=== PATIENT | female | born 1985 ===

== ENCOUNTER 2020-02-17 14:00 | Inpatient (IN) | payer OTHER ==
[~2020-02-17] VITALS: Ht 152.4 cm; Wt 67.1 kg
[2020-02-29] MEDS ORDERED: PRENATAL TABLE1 EAC1 PO (22:13)
== END 2020-03-03 12:42 | disposition home or self-care (01) | DRG 788 ==
LOC: OB/GYN 02-29 17:07 → LDR 02-29 17:07 → O/R 02-29 22:14 → OB/GYN 02-29 23:16 → SURH 03-07 14:00
PROVIDERS: ADMIT Obstetrics & Gynecology; ATTEND Obstetrics & Gynecology
PROC: 4A1HXFZ Monitoring of Products of Conception, Cardiac Rhythm, External Approach (ICD-10-PCS; 2020-02-29)
PROC: 3E033VJ Introduction of Other Hormone into Peripheral Vein, Percutaneous Approach (ICD-10-PCS; 2020-02-29)
PROC: 10D00Z1 Extraction of Products of Conception, Low, Open Approach (ICD-10-PCS; principal; 2020-02-29 21:15)
DX: O33.1 Maternal care for disproportion due to generally contracted pelvis (principal); Z3A.39 39 weeks gestation of pregnancy; Z37.0 Single live birth